=== PATIENT | female | born 1985 | race Two or more races ===

== ENCOUNTER 2024-01-19 18:28 | Emergency (ER) | payer BC ==
[~2024-01-19] VITALS: Ht 157.5 cm; Wt 86.9 kg
[2024-01-19 18:58] LABS: Urine Bacteria None Seen /hpf (None Seen)
[2024-01-19 19:20] LABS: Urine Blood 3+ /uL (Negative); Urine Clarity Turbid (Clear); Urine Color Light-Brown (Yellow); Urine Protein, UAD 1+ (Negative); Urine Urobilinogen Normal (Negative); Urine WBC 313 /hpf (0 - 5)
[2024-01-19 19:46] LABS: Basophils # (auto) 0 10 ^3/uL (0-0.2); Basophils % (auto) 0.4 % (0.0-2.0); Eosinophils # (auto) 0 10 ^3/uL (0-0.8); Eosinophils % (auto) 0.4 % (0.0-7.0); Hematocrit 42.5 % (36.0-46.0); Hemoglobin 14.2 g/dL (12.2-16.2); Lymphocytes # (auto) 2.4 10 ^3/uL (0.4-5.4); Lymphocytes % (auto) 20.7 % (10.0-50.0); Mean Corpuscular Hgb Conc. 33.4 g/dL (32.0-36.0); Monocytes # (auto) 0.5 10 ^3/uL (0-1.3); Monocytes % (auto) 4.7 % (0.0-12.0); Neutrophils # (auto) 8.5 10 ^3/uL (1.6-8.6); Neutrophils % (auto) 73.8 % (37.0-80.0); Red Blood Cells 4.89 10^6/uL (4.0-5.20); Red Cell Distribution Width 13.2 % (11.8-14.3); White Blood Cell 11.5 10^3/uL (4.4-10.8)
[2024-01-19 20:03] LABS: Alanine Aminotransferase 42 U/L (7-40); Albumin 4.6 g/dL (3.2-4.8); Alkaline Phosphatase 71 U/L (46-116); Anion Gap 11 (5-15); Aspartate Aminotransferase 28 U/L (13-40); BUN/Creatinine Ratio 14.3 (10.0-20.0); Blood Urea Nitrogen 9 mg/dL (9-23); Calcium 10.4 mg/dL (8.7-10.4); Carbon Dioxide 22 mmol/L (20-30); Chloride 102 mmol/L (98-107); Glucose 229 mg/dL (74-106); INR 0.92 (0.9-1.15); Partial Thromboplastin Time 23.1 SEC (24.5-34.5); Potassium 3.5 mmol/L (3.5-5.1); Prothrombin Time 9.8 sec (9.3-11.8); Sodium 135 mmol/L (136-145); Total Protein 7.5 g/dL (5.7-8.2)
[2024-01-19 20:10] LABS: Bilirubin, Total 0.3 mg/dL (0.2-1.0)
[2024-01-19 22:40] VITALS: BP 126/85; PULSE 100; RESP 18; TEMP 98.5; O2SAT 97
== END 2024-01-19 22:41 | disposition home or self-care (01) ==
LOC: ER 18:28
DX: O46.8X1 Other antepartum hemorrhage, first trimester (principal); R10.2 Pelvic and perineal pain; E11.9 Type 2 diabetes mellitus without complications; E78.5 Hyperlipidemia, unspecified; Z3A.01 Less than 8 weeks gestation of pregnancy; Z98.890 Other specified postprocedural states
CPT/HCPCS: 36415; 76801; 80053; 81001; 84702; 85025; 85610; 85730; 86850; 86900; 86901